=== PATIENT | female | born 1960 | race Caucasian/White ===

== ENCOUNTER → 2019-08-22 | Outpatient (CLI) | payer BC | LOC: M.MRI 08:30 | DX: S83.241A Other tear of medial meniscus, current injury, right knee, initial encounter (principal); M17.11 Unilateral primary osteoarthritis, right knee; X58.XXXA Exposure to other specified factors, initial encounter; Y93.89 Activity, other specified; Y92.89 Other specified places as the place of occurrence of the external cause; Y99.8 Other external cause status ==

== ENCOUNTER 2019-09-12 06:51 | Inpatient (IN) | payer BC ==
[2019-09-05 11:01] LABS: HEMATOCRIT 41.3 % (37.0-47.0); MCH 29.9 pg (26.0-34.0); MPV 8.3 fl. (7.2-11.1); RBC 4.69 mil/uL (4.20-5.00); RDW-CV 14.4 % (10.5-14.5); WBC 6.6 thou/uL (4.0-11.0)
[2019-09-05 11:06] LABS: URINE BILIRUBIN NEGATIVE (Negative); URINE BLOOD TRACE (Negative); URINE CLARITY CLEAR; URINE COLOR YELLOW; URINE GLUCOSE-RANDOM NEGATIVE (Negative); URINE KETONES NEGATIVE (Negative); URINE LEUKOCYTES-REFLEX TRACE (Negative); URINE NITRITE-REFLEX NEGATIVE (Negative); URINE PROTEIN NEGATIVE (Negative); URINE SPECIFIC GRAVITY 1.015 (1.005-1.030); URINE UROBILINOGEN 0.2 E.U./dl (0.2-1.0)
[2019-09-05 11:09] LABS: PROTIME 9.8 Seconds (9.20-11.50)
[2019-09-05 11:22] LABS: BACTERIA-REFLEX 1-9 Few /HPF (None Seen); CASTS None Seen /LPF (None Seen); CRYSTALS None Seen /LPF (None Seen); MUCUS None Seen strn/LPF (None Seen); SQUAMOUS 4-10 Moderate /LPF (0-3); URINE RBC 0-2 Rare /HPF (0-2); URINE WBC-REFLEX 0-5 Rare /HPF (0-5)
[2019-09-05 11:25] LABS: ALBUMIN 3.6 g/dL (3.4-5.0); CALCIUM 8.8 mg/dL (8.5-10.1); CREATININE 0.9 mg/dL (0.6-1.3); POTASSIUM 4.4 mmol/L (3.5-5.1); TOTAL BILIRUBIN 0.4 mg/dL (<0.1-1.0); TOTAL PROTEIN 7.3 g/dL (6.4-8.2)
--- NOTE | 2019-09-05 16:28 | EKG ---
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
[~2019-09-12] VITALS: Ht 165.1 cm; Wt 103.4 kg
[~2019-09-12 06:51] MED LIST: AMBIEN 5 MG TABL5 M1 PO
[2019-09-12 12:25] VITALS: BP 141/78
[2019-09-12 17:30] VITALS: BP 138/76
--- NOTE | 2019-09-12 19:22 | NUR ---
PATIENT ARRIVED TO UNIT AT APPROX 1720. ALERT AND ORIENTED X4. ASSESSMENT COMPLETED AND CHARTED. VSS ON 2 LITERS 02. NO COMPLAINTS OF PAIN UPON ARRIVAL. UP WITH MINIMUM ASSIST TO BEDSIDE COMMODE SHORTLY AFTER ARRIVING TO UNIT. NO OTHER COMPLAINTS THIS SHIFT. FLUIDS INFUSED ORDERED. FALL PRECAUTIONS IN PLACE. CALL LIGHT WITHIN REACH. HOURLY ROUNDS COMPLETED. WILL CONTINUE WITH PLAN OF CARE.
[2019-09-12 20:00] VITALS: BP 131/77
[2019-09-13] VITALS: BP 123/71
[2019-09-13 03:51] VITALS: BP 134/63
--- NOTE | 2019-09-13 06:58 | NUR ---
PATIENT HAS RESTED WELL THROUGHOUT THE NIGHT. VSS ON 2L 02 VIAS NASAL CANNUL WITH CAPNO. MEDICATIONS GIVEN ORDERED AND CHARTED. PAIN WELL CONTROLLED. CPM TOLERATED WELL. PATIENT IS UP WITH ASSIST X 1 WITH [facility] AND WALKER TO THE [facility] AND DOING WELL. DRESSING TO RIGHT KNEE IS C/D/I, ELINA HOSE, SCD'S AND POLAR CARE IN PLACE. HEMOVAC TO RIGHT KNEE WITH MODERATE AMOUNT OF SANGUINEOUS DRAINAGE. IV IN LEFT FOREARM-1/2 NS @ 75ML/HR. IV ABT GIVEN WITHOUT ANY ADVERSE SIDE EFFECTS NOTED. PATIENT INSTRUCTED TO USE CALL LIGHT WHEN NEEDING ASSISTANCE. HOURLY ROUNDS MADE. WILL CONTINUE WITH PLAN OF CARE AND NURSING TO MONITOR.
[2019-09-13 08:11] VITALS: BP 116/53
[2019-09-13 08:13] LABS: HEMATOCRIT 33.1 % (37.0-47.0); HEMOGLOBIN 11.3 gm/dL (12.0-15.0)
[2019-09-13] MEDS ORDERED: XARELTO10 M1 PO (09:35)
[2019-09-13] MEDS ORDERED: PERCOCET 5-3251 EACH PO (09:36)
--- NOTE | 2019-09-13 09:39 | NUR ---
RECIEVED O.T. ORDERS. WILL DEFER TO P.T. AT THIS TIME. PLEASE ORDER FURTHER O.T. SERVICES IF NEEDED.
[2019-09-13 11:24] VITALS: BP 116/53
--- NOTE | 2019-09-13 11:28 | NUR ---
Pt is A&O. Resides at home with her . Normally independent and active. Pt does not use any DME, but does have a walker and shower chair at home. No hx of HH or SNF. Pt discharging to home today with [facility] x1week, then plans to go to outpt rehab at [facility] in [place]. CM faxed HH referral to [facility]. 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 No further needs identified.
[2019-09-13 12:00] VITALS: BP 135/63
[2019-09-13 12:29] VITALS: BP 116/53
--- NOTE | 2019-09-13 14:15 | NUR ---
PT A&Ox4. IV OUT. PT STABLE. DRESSING C/D/I. PERSONAL BELONGINGS SENT WITH PT.
--- NOTE | 2019-09-13 21:23 | OP ---
[facility] [address] [place] [address] OPERATIVE REPORT Name: COCO BERRY Nazanin Room: [address]R#: [id number] Admission: 09/12/19 Attend Phys: Padma Pride Discharge: 09/13/19 Date of : 60 Report #: [id number] THIS REPORT FOR: //name// cc: Alice Salazar MD, Jennifer MD ~ THIS REPORT FOR: //name// CC: Alice Frye DATE OF SERVICE: 09/12/2019 PREOPERATIVE DIAGNOSIS: Right knee osteoarthritis. POSTOPERATIVE DIAGNOSIS: Right knee osteoarthritis. PROCEDURE: Right total knee arthroplasty. SURGEON: Gabriel Gilman II, DO. BALL WARPER TENDER: ELIECER Oquendo. ANESTHESIA: General endotracheal. ESTIMATED BLOOD LOSS: 50 mL. ANTIBIOTICS: Ancef preoperatively. DRAINS: Hemovac. COMPLICATIONS: None. CONDITION OF THE PATIENT: Stable to recovery room. IMPLANTS: Listed in operative record and progress note. BRIEF HISTORY: The patient was seen in the preoperative area. Preoperative H and P was performed. Site was marked, questions were answered. Risks and benefits were discussed with the patient in detail about surgery. The patient wished to proceed, assuming all risks. DESCRIPTION OF PROCEDURE: The patient was taken to the operative suite and placed supine on the operative table, given appropriate anesthesia. A well-padded tourniquet was applied to upper thigh, which was inflated to 300 mmHg after gravity exsanguination. The operative knee was sterilely prepped and [facility] [address] [place] [id number] OPERATIVE REPORT Name: COCO BERRY Room: [address] IN [facility].#: [id number] Admission: 09/12/19 Attend Phys: Padma Pride Discharge: 09/13/19 Date of : 60 Report #: [id number] draped. Surgery began by midline incision. This was carried down to the subcutaneous tissues. A medial parapatellar arthrotomy was performed and carried down to bone. Patella was then everted and excess soft tissue was removed from around the femur. Femoral cutting block was then applied, checked with drop carmen for rotational alignment, pinned in appropriate position and appropriate cuts were made. A 4-in-1 cutting block was then applied, checked for rotational alignment, pinned into appropriate position and appropriate cuts were made. The tibia was then exposed. Excess meniscus was removed. Retractor was placed on collateral ligaments. The tibial cutting block was then applied in appropriate position, checked with drop carmen for rotational alignment and slope and appropriate cut was made. The tibial bone was removed. The tibial base plate was then applied, checked for rotational alignment with drop carmen and pinned in appropriate position. The femur was then applied and box cut was reamed. This was then trialed with appropriate spacer, which showed excellent fit and fill and excellent stability of knee through all range of motion. The patella was reamed in appropriate fashion and sized to appropriate size. Three peg holes were drilled. Knee was then trialed and showed excellent flexion and extension, excellent tracking of the patella within groove. These trials were then removed. The tibia was punched in appropriate fashion. Bone ends were cleansed with Pulsavac irrigation and cement was mixed and applied to final implants. These were then malleted into position and held the knee in extension and compressed to allow cement to cure. After it cured, excess was removed utilizing a [place] and osteotome. Wound was then copiously irrigated and the final spacer was then malleted into position. The tourniquet was deflated. Hemostasis was obtained with electrocautery. Pain cocktail was injected. PRP gel sprayed to internal aspects of the knee. Medium Hemovac drain was applied. The capsule was closed with #2 FiberWire and 1-0 Vicryl in [id number] fashion. Skin was closed with 2-0 Vicryl and running 3-0 Monocryl. Dermabond and sterile dressing applied. Edward wrap and PolarCare applied. The patient transported to recovery room in stable condition. Counts were correct throughout the procedure. <ELECTRONICALLY SIGNED> By: Gabriel Gilman II, DO 09/13/193 1 0909Gabriel Gilman II, DO /nt
== END 2019-09-13 14:18 | disposition home health service (06) | DRG 470 ==
LOC: M.PRE 06:51 → M.TBA 10:02 → M.PRE 10:41 → M.3W 17:19
PROVIDERS: Orthopaedic Surgery; ADMIT Internal Medicine
PROC: 0SRC0J9 Replacement of Right Knee Joint with Synthetic Substitute, Cemented, Open Approach (ICD-10-PCS; principal; 2019-09-12)
DX: M17.11 Unilateral primary osteoarthritis, right knee (principal); D62 Acute posthemorrhagic anemia; G47.00 Insomnia, unspecified; Z88.1 Allergy status to other antibiotic agents; Z20.828 Contact with and (suspected) exposure to other viral communicable diseases; Z90.710 Acquired absence of both cervix and uterus; Z90.49 Acquired absence of other specified parts of digestive tract; Z87.891 Personal history of nicotine dependence